=== PATIENT | female | born 1960 | race Two or more races ===

== ENCOUNTER 2019-05-17 02:41 | Emergency (ER) | payer SELFPAY ==
[~2019-05-17] VITALS: Ht 162.6 cm; Wt 49.9 kg
[2019-05-17 02:43] VITALS: BP 138/91
--- NOTE | 2019-05-17 02:43 | NUR ---
ED Nurse Note: Pt was BIBA from home, c/o axiety attack. Pt called 911 by herself. Pt is awake, having bizarred behavior, Pt states that " she only likes Men and doesn't want any female to be touched. Vital signs stable, waiting for orders.
--- NOTE | 2019-05-17 02:55 | NUR ---
ED Nurse Note: Blood and urine sample collected and sent to Lab.
[2019-05-17] MEDS ORDERED: Haloperidol 5mg/ml Inj IM ONE (03:00)
[2019-05-17] MEDS ORDERED: LORazepam Inj 2mg/ml 1ml IV ONE (03:00)
--- NOTE | 2019-05-17 03:08 | NUR ---
ED Nurse Note: Meds given as ordered.
--- NOTE | 2019-05-17 03:20 | Emergency Room Report ---
History of Present Illness General Chief Complaint: Behavioral Complaint Source: Patient Present Illness HPI Patient presents by paramedics for reports of auditory hallucinations Patient has history of underlying schizophrenia and bipolar disorder Denies any suicidal or homicidal thoughts Upon arrival patient requesting male nurse male physician Denies any other medical complaints denies any chest pain or shortness of breath Patient reports that she lives by herself at home and called the paramedics from there Allergies: Coded Allergies: No Known Allergies (Unverified , 05/17/19) Patient History Past Medical History: see triage record Pertinent Family History: none Now: No Reviewed Nursing Documentation: PMH: Agreed; PSxH: Agreed Nursing Documentation-PMH Past Medical History: No History, Except For History Of Psychiatric Problem: Yes - BIPOLAR, DEPRESSION Review of Systems All Other Systems: negative except mentioned in HPI Physical Exam Vital Signs Date Time Temp Pulse Resp B/P (MAP) Pulse Ox O2 Delivery O2 Flow Rate FiO2 05/17/19 02:38 98.6 96 20 138/91 (107) 98 Sp02 EP Interpretation: reviewed, normal General Appearance: well appearing, no apparent distress Head: normocephalic, atraumatic Eyes: bilateral eye PERRL, bilateral eye EOMI ENT: hearing grossly normal, normal pharynx, TMs + canals normal, uvula midline Neck: full range of motion, supple, no meningismus, no bony tend Respiratory: lungs clear, normal breath sounds, no rhonchi, no respiratory distress, no retraction, no accessory muscle use Cardiovascular #1: normal peripheral pulses, regular rate, rhythm, no edema, no gallop, no JVD, no murmur Gastrointestinal: normal bowel sounds, non tender, soft, no mass, no organomegaly, non-distended, no guarding, no hernia, no pulsatile mass, no rebound Genitourinary: no CVA tenderness Musculoskeletal: normal inspection Neurologic: oriented x3, responsive, supervisor personnel clerks III-XII nml as tested, motor strength/ tone normal, sensory intact Psychiatric: other - Disorganized thought process Skin: normal color, no rash, warm/dry, palpation normal Lymphatic: normal inspection, no adenopathy Medical Decision Making Diagnostic Impression: Primary Impression: Schizophrenia ER Course Given the patient's history and presentation initial blood work is initiated Throughout the night patient reporting that she feels well and would like to go home she was allowed to rest throughout the night Attempts were made to find phone numbers or other contacts In the morning time patient refusing any further care Denies any homicidal or suicidal thoughts Has oriented thought process and medically stable Refusing any further care Patient left the emergency department within full decision-making capacity Refusing any further care Does not meet any psychiatric hold criteria, Patient was brought in by paramedics without any police escort and without any psychiatric hold Labs Test 05/17/19 03:00 05/17/19 03:05 White Blood Count 7.5 K/UL (4.8-10.8) Red Blood Count 4.13 M/UL (4.20-5.40) Hemoglobin 12.2 G/DL (12.0-16.0) Hematocrit 36.1 % (37.0-47.0) Mean Corpuscular Volume 88 FL (80-99) Mean Corpuscular Hemoglobin 29.6 PG (27.0-31.0) Mean Corpuscular Hemoglobin Concent 33.8 G/DL (32.0-36.0) Red Cell Distribution Width 11.8 % (11.6-14.8) Platelet Count 248 K/UL (150-450) Mean Platelet Volume 7.7 FL (6.5-10.1) Neutrophils (%) (Auto) 56.6 % (45.0-75.0) Lymphocytes (%) (Auto) 28.1 % (20.0-45.0) Monocytes (%) (Auto) 13.5 % (1.0-10.0) Eosinophils (%) (Auto) 0.5 % (0.0-3.0) Basophils (%) (Auto) 1.4 % (0.0-2.0) Sodium Level 127 MMOL/L (136-145) Potassium Level 3.0 MMOL/L (3.5-5.1) Chloride Level 91 MMOL/L (98-107) Carbon Dioxide Level 27 MMOL/L (21-32) Anion Gap 9 mmol/L (5-15) Blood Urea Nitrogen 5 mg/dL (7-18) Creatinine 0.6 MG/DL (0.55-1.30) Estimat Glomerular Filtration Rate > 60 mL/min (>60) Glucose Level 94 MG/DL (74-106) Calcium Level 9.1 MG/DL (8.5-10.1) Total Bilirubin 0.4 MG/DL (0.2-1.0) Aspartate Amino Transf (AST/SGOT) 46 U/L (15-37) Alanine Aminotransferase (ALT/SGPT) 34 U/L (12-78) Alkaline Phosphatase 141 U/L (46-116) Total Protein 7.6 G/DL (6.4-8.2) Albumin 3.7 G/DL (3.4-5.0) Globulin 3.9 g/dL Albumin/Globulin Ratio 0.9 (1.0-2.7) Salicylates Level 1.2 ug/mL (2.8-20) Acetaminophen Level < 2 MCG/ML (10-30) Serum Alcohol < 3 mg/dL Urine Opiates Screen Negative (NEGATIVE) Urine Barbiturates Screen Negative (NEGATIVE) Phencyclidine (PCP) Screen Negative (NEGATIVE) Urine Amphetamines Screen Negative (NEGATIVE) Urine Benzodiazepines Screen Negative (NEGATIVE) Urine Cocaine Screen Negative (NEGATIVE) Urine Marijuana (THC) Screen Negative (NEGATIVE) Last Vital Signs Date Time Temp Pulse Resp B/P (MAP) Pulse Ox O2 Delivery O2 Flow Rate FiO2 05/17/19 02:38 98.6 96 20 138/91 (107) 98 Status: improved Disposition: AGAINST MEDICAL ADVICE Condition: Stable Referrals: NOT CHOSEN IPA/,REFERRING (PCP) Ramon Dooley DO May 17, 2019 03:20
[2019-05-17 03:52] LABS: BASOPHILS % (AUTO) 1.4 % (0.0-2.0); EOSINOPHILS % (AUTO) 0.5 % (0.0-3.0); HEMATOCRIT 36.1 % (37.0-47.0); HEMOGLOBIN 12.2 G/DL (12.0-16.0); LYMPHOCYTES % (AUTO) 28.1 % (20.0-45.0); MEAN CORPUSCULAR VOLUME 88 FL (80-99); MONOCYTES % (AUTO) 13.5 % (1.0-10.0); NEUTROPHILS % (AUTO) 56.6 % (45.0-75.0); PLATELET COUNT 248 K/UL (150-450); RED BLOOD COUNT 4.13 M/UL (4.20-5.40); RED CELL DISTRIBUTION WIDTH 11.8 % (11.6-14.8); WHITE BLOOD COUNT 7.5 K/UL (4.8-10.8)
--- NOTE | 2019-05-17 03:55 | NUR ---
ED Nurse Note: Pt is moved from OB to room 7# as ordered. Endorsed to Karen/RN for continue care. Pt is awake, ambulated with steady gait, Skin intact, VSS.
--- NOTE | 2019-05-17 04:00 | NUR ---
ED Nurse Note: Received report from Yoanna RN for continuity of care per CN. No distress noted at this time. Yoanna RN endorsed that pt requested only to be touched by a man so male staff assistance has been assigned. Will continue to monitor.
[2019-05-17 04:06] LABS: ANION GAP 9 mmol/L (5-15); BLOOD UREA NITROGEN 5 mg/dL (7-18); CALCIUM 9.1 MG/DL (8.5-10.1); CARBON DIOXIDE 27 MMOL/L (21-32); CHLORIDE 91 MMOL/L (98-107); CREATININE 0.6 MG/DL (0.55-1.30); SODIUM 127 MMOL/L (136-145)
[2019-05-17 04:11] LABS: ALANINE AMINOTRANSFERASE 34 U/L (12-78); ALBUMIN 3.7 G/DL (3.4-5.0); ALBUMIN/GLOBULIN RATIO 0.9 (1.0-2.7); ALKALINE PHOSPHATASE 141 U/L (46-116); ASPARTATE AMINO TRANSFERASE 46 U/L (15-37); BILIRUBIN,TOTAL 0.4 MG/DL (0.2-1.0)
--- NOTE | 2019-05-17 05:40 | NUR ---
Spoke with Claudia at [facility] [phone]- face sheet and clinicals faxed to [phone] for review as requested.
--- NOTE | 2019-05-17 06:39 | NUR ---
AMA: SEE AMA FORM. Addendum: 05/17/19 at 0645 by YARELY ELOPEMENT: Per ER correction, pt eloped. See correction in discharge assessment.
== END 2019-05-17 06:38 | disposition left against medical advice (07) ==
LOC: EDBD 02:41 → EMR 03:01
DX: F20.9 Schizophrenia, unspecified (principal); F32.9 Major depressive disorder, single episode, unspecified; F31.9 Bipolar disorder, unspecified
CPT/HCPCS: 36415; 80053; 80307; 85025; 96372; 96374; 99284; G0480; J1630; 80329; J8499